=== PATIENT | male | born 1950 | race Two or more races ===

== ENCOUNTER → 2020-10-14 10:00 | Outpatient (CLI) | payer OTHER ==
[~2020-10-14 10:00] MED LIST: TAMS0.4C PO
== END | disposition home or self-care (01) ==
LOC: PPH VACUNA 10:00
PROVIDERS: ATTEND Emergency Medicine Pediatric Emergency Medicine
DX: Z23 Encounter for immunization (principal)

== ENCOUNTER 2020-12-19 12:37 | Inpatient (IN) | payer OTHER ==
[~2020-12-19] VITALS: Ht 175.3 cm; Wt 87.5 kg
[2020-12-19] MEDS ORDERED: TAMS0.4C PO (12:59)
== END 2020-12-21 14:05 | disposition home or self-care (01) | DRG 395 ==
LOC: ER 12:37 → SURG 15:06
PROVIDERS: ADMIT Colon & Rectal Surgery; ATTEND Colon & Rectal Surgery
PROC: BW21ZZZ Computerized Tomography (CT Scan) of Abdomen and Pelvis (ICD-10-PCS; principal; 2020-12-19)
DX: K35.80 Unspecified acute appendicitis (principal); N40.0 Benign prostatic hyperplasia without lower urinary tract symptoms; Z20.822 Contact with and (suspected) exposure to COVID-19

== ENCOUNTER 2021-06-30 17:15 | Emergency (ER) | payer OTHER ==
[~2021-06-30] VITALS: Ht 175.3 cm; Wt 87.1 kg
== END 2021-06-30 21:29 | disposition home or self-care (01) ==
LOC: ER 17:15
DX: R07.89 Other chest pain (principal); R50.9 Fever, unspecified